=== PATIENT | female | born 1950 | race African-American/Black ===

== ENCOUNTER 2017-07-03 23:42 | Inpatient (IN) ==
[2017-07-04] MEDS ORDERED: SODIUM CHLORIDE 0.9% 500 ML IV STA (00:17)
[2017-07-04] MEDS ORDERED: ONDANSETRON 4 MG/2 ML VIAL IV STA (00:17)
[2017-07-04] MEDS ORDERED: KETOROLAC 30 MG/1 ML VIAL IV STA (00:17)
[2017-07-04] MEDS ORDERED: KETOROLAC 30 MG/1 ML VIAL ONE (00:37)
[2017-07-04] MEDS ORDERED: ONDANSETRON 4 MG/2 ML VIAL ONE (00:37)
--- NOTE | 2017-07-04 01:08 | Emergency Department Note ---
Mitchell Perez Brittany, am scribing for, and in the presence of, Maximus Brown MD 00:23. Kevin Perez Charles R, MD, personally performed the services described in this documentation, ascribed by Gabby Medrano in my presence, and it is both accurate and complete . Arrival - Arrival Chief Complaint: Back Stated Complaint: panic attack ED Nursing Triage Note: C/O Left lower back pain. Onset "days ago" Pt is a very poor historian. Pt denies fever. Denies any other symptoms. Mode of Arrival: Wheelchair Limitations: No Limitations Source: Patient, RN Notes Reviewed - History of Present Illness HPI Narrative: Patient is a 67 y/o black female presenting to the ED with c/o left lower back pain that has been ongoing for some months, worsening tonight. Patient states that this pain begins in the left lower back, radiating into the abdomen and down the bilateral lower extremities. She notes that at times with this pain she has experienced some numbness of the lower extremities with this back pain. She notes having some fever, chills, body aches, slight headache, constipation, and urinary frequency. Patient was recently seen and evaluated at [facility] a few weeks ago for Anxiety attacks and sinus congestion per family member at the bedside. Patient is routinely followed at [facility]. Patient states that on last visit to [facility] she was told by staff there that she would need to be admitted to the hospital. Patient does not elaborate on what particular diagnosis she may have had for someone there to tell her that, prompts belief that patient may in fact be slightly confused and may have an underlying UTI. Patient does not smoke cigarettes. PMHx of Seizures. No other complaints. Onset (ago): month(s) Consistency: intermittent Date of Last Menstrual Period: Hysterectomy Allergies/Adverse Reactions: Allergies Allergy/AdvReac Type Severity Reaction Status Date / Time Penicillins Allergy Severe RASH Verified 02/29/16 23:01 Home Medications: Home Medications Medication Instructions Recorded Confirmed Type Aspirin [Ecotrin] 81 mg PO DAILY 02/29/16 07/03/17 History Cholecalciferol (Vitamin D3) 50,000 unit PO DIRECTED 02/29/16 07/03/17 History [Vitamin D3] Phenytoin ER Cap [Dilantin Cap] 100 mg PO BID 02/29/16 07/03/17 History Ranitidine Tab [Zantac Tab] 150 mg PO BID 02/29/16 07/03/17 History tiZANidine [Zanaflex] 4 mg PO Q8HR 02/29/16 07/03/17 History Fluticasone 50 Mcg Nasal [place] 2 spray BOTH NARES DAILY 07/03/17 07/03/17 History [Flonase Nasal [place]] LORazepam [Lorazepam] 0.5 mg PO Q8H PRN 07/03/17 07/03/17 History Loratadine 10 mg PO DAILY 07/03/17 07/03/17 History PARoxetine [Paxil] 20 mg PO DAILY 07/03/17 07/03/17 History Review of System - Review of System 12 point system: reviewed and no additional remarkable complaints except as stated - Review of System Constitutional: Present: chills, fever Respiratory: Absent: respiratory distress Cardiovascular: Absent: chest pain Gastrointestinal: Present: constipation. Absent: abdominal pain, nausea, vomiting Genitourinary female: Present: frequency. Absent: dysuria, urgency Musculoskeletal: Present: lower back pain. Absent: arm pain, leg pain, neck pain Neurological: Present: headache Medical,Surgical,& Family Hx - Medical History Cardio: History of: Hypertension Psychological: History of: Anxiety Disorders, Depression - Social History Smoking Status: Never smoker Frequency of Alcohol Use: None Type of Drug Use: None Exam Vital Signs: Vital Signs Temperature 98.5 F 07/03/17 23:52 Pulse Rate 100 H 07/03/17 23:52 Respiratory Rate 16 07/03/17 23:52 Blood Pressure 149/76 07/03/17 23:52 O2 Sat by Pulse Oximetry 98 07/03/17 23:52 - General General appearance: alert, in no apparent distress, other (Fraile appearing black female) - Head Head exam: Present: atraumatic, normocephalic - Eye Eye exam: Present: PERRL, EOMI - ENT ENT exam: Present: normal exam, normal oropharynx - Neck Neck exam: Present: normal inspection, full ROM, trachea midline - Chest Chest inspection: Present: normal inspection, symmetric chest wall rise - Respiratory Respiratory exam: Present: normal lung sounds bilaterally - Cardiovascular Cardiovascular exam: Present: normal rhythm, tachycardia, normal heart sounds. Absent: regular rate - Abdominal Exam Abdominal exam: Present: soft, tenderness (suprapubic ttp), normal bowel sounds - Extremities Exam Extremities exam: Present: normal inspection - Back Exam Back exam: Present: CVA tenderness (L) - Neurological Exam Neurological exam: Present: alert, CN II-XII intact. Absent: oriented X3 ( seems to be confused), motor sensory deficit - Psychiatric Psychiatric exam: Present: normal affect, normal mood - Skin Skin exam: Present: warm, dry, intact, normal color Course - Consultations Consultation #1: Dr. Turner will admit patient for abdominal pain nausea and cholecystitis Time: 03:58 Results - Labs CBC & BMP: 07/04/17 01:16 07/04/17 01:16 Lab Results: I have reviewed the patients labs Labs: Laboratory Tests 07/04/17 07/04/17 07/04/17 01:16 01:16 01:16 WBC 11.2 RBC 4.23 Hgb 12.9 Hct 36.6 MCV 86.5 L Plt Count 225 MPV 9.4 L Neut % (Auto) 68.7 Lymph % (Auto) 19.6 L Neut # (Auto) 7.7 H [place] # (Auto) 1.2 H Sodium 135 L Potassium 3.6 Chloride 99 Carbon Dioxide 28 BUN 7 Creatinine 0.50 L Glucose 123 H Calculated Osmolality 268.1 L Urine Color Yellow Urine Appearance Clear Urine pH 7.0 Ur Specific [place] 1.010 Urine Protein Negative Urine Glucose (UA) 50 Urine Ketones Negative Urine Blood Small Urine Nitrate Negative Urine Bilirubin Negative Urine Urobilinogen < 2.0 H Urine Leukocytes Negative Urine RBC 2 Urine WBC 1 Ur Squamous Epith Cells Occasional Urine Mucus Occasional Laboratory Tests 07/04/17 01:16 Phenytoin 15.5 Disposition Clinical Impression: Cholecystitis, Cholelithiasis, Nausea & vomiting, Abdominal pain, Seizure disorder Case discussed with: patient, patient's family Disposition: Still a Patient Condition: Stable Time of Disposition: 03:59
[2017-07-04 01:38] LABS: Basophils # 0.1 10*3/uL (0.0-0.2); Basophils % 0.4 % (0.0-0.8); Eosinophils % 0.4 % (0.00-10.9); Hematocrit 36.6 VOL% (35.7-47.0); Hemoglobin 12.9 GM/DL (12.0-16.0); Immature Granulocytes % 0.6 %; Immature Granulocytes Absolute 0.07 #; Lymphocytes # 2.2 10*3/uL (1.4-4.0); Lymphocytes % 19.6 % (21.3-54.2); Mean Corpuscular HGB Conc 35.2 GM/DL (32-36); Mean Corpuscular Hemoglobin 31 PG (27-34); Mean Corpuscular Volume 86.5 FL (87-102); Mean Platelet Volume 9.4 FL (9.6-12.0); Monocytes # 1.2 10*3/uL (0.11-0.8); Monocytes % 10.3 % (1.7-12.7); Neutrophils # 7.7 10*3/uL (1.4-7.4); Neutrophils % 68.7 % (38.7-73.9); Platelet Count 225 T/CUMM (130-400); Red Blood Count 4.23 MC/CUMM (3.8-5.5); Red Cell Distribution Width 13.3 % (9.3-17.3); White Blood Count 11.2 T/CUMM (4-12)
[2017-07-04 01:51] LABS: Alanine Aminotransferase 45 U/L (13-56); Alkaline Phosphatase 90 U/L (45-117); Amylase 56 U/L (25-115); Aspartate Amino Transferase 28 U/L (0-37); Bilirubin,Total < 0.39 MG/DL (0.2-1.0); Blood Urea Nitrogen 7 MG/DL (7-18); Glucose 123 MG/DL (74-106); Magnesium 2.2 MG/DL (1.8-2.4); Osmolality,Calculated 268.1 MOS/KG (273-304); Potassium 3.6 MMOL/L (3.5-5.1); Sodium 135 MMOL/L (136-145)
[2017-07-04 02:03] LABS: Apearance,Urine CLEAR (Clear); Bilirubin,Urine Negative (Negative); Blood, Urine Small mg/dL (Negative); Glucose,Urine (UA) 50 mg/dL (Negative); Ketones,Urine Negative (Negative); Mucus,Urine Occasional /LPF (Occasional); Nitrite,Urine Negative (Negative); Protein,Urine Negative; RBC,Urine 2 /HPF (0-4); Squamous Epithelial Cell,Urine Occasional /HPF (0-10); Urine Color Yellow (Yellow); Urine Urobilinogen < 2.0 EU/DL (0.2-1.0); WBC,Urine 1 /HPF (0-6)
[2017-07-04] MEDS ORDERED: LORazepam 0.5 MG TABLET PO PRN (05:52)
[2017-07-04] MEDS ORDERED: ACETAMINOPHEN 325 MG TABLET PO PRN (05:52)
[2017-07-04] MEDS ORDERED: NON-FORMULARY MEDICATION (Cholecalciferol (Vitamin D3) [Vitamin D3] 50,000 UNIT) PO SCH (05:52)
[2017-07-04] MEDS ORDERED: HYDROmorphone 2 MG/1 ML VIAL IV PRN (05:52)
[2017-07-04] MEDS ORDERED: ALBUTEROL/IPRATROPIUM 3 ML NEB RESP TX PRN (05:52)
[2017-07-04] MEDS ORDERED: tiZANidine 4 MG TABLET PO SCH (06:00)
[2017-07-04] MEDS: SODIUM CHLORIDE 0.9% 1,000 ML IV SCH ×3 (06:13→18:28)
[2017-07-04] MEDS: LEVOFLOXACIN INJ 750 MG in PREMIX 1 EACH IV SCH (06:40)
[2017-07-04] MEDS ORDERED: metroNIDAZOLE INJ 500 MG in PREMIX 1 EACH IV SCH (07:00)
--- NOTE | 2017-07-04 07:39 | Ultrasound Report ---
Gallbladder ultrasound. Indication: Right upper quadrant pain. Abnormal findings on CT. There is a preliminary report from [facility]. The liver is normal in size and parenchymal echogenicity without focal lesion or intrahepatic biliary ductal dilatation. The common bile duct measures 4 mm. The gallbladder is distended. It contains a single 1.8 cm stone. The gallbladder wall measures 5 mm. The gallbladder wall appears edematous. There is no pericholecystic fluid. The right kidney presents a normal appearance. No ascites. No pancreatic abnormality is identified. Impression: Distended gallbladder containing a large gallstone. Edematous gallbladder wall thickening. These findings are suspicious for cholecystitis. The Ultrasound images were captured and stored. PROCEDURE INTERPRETED AT [facility] DEPARTMENT OF RADIOLOGY Final Report Signed by: Dr. Kavitha Tee
--- NOTE | 2017-07-04 08:52 | CT Report ---
CT of the abdomen and pelvis without intravenous or oral contrast. Indication: Pelvic and lower abdominal pain. Axial images were obtained with sagittal and coronal 2-D reconstructions. There is a preliminary report from [facility]. The heart is normal in size. There is no pericardial or pleural effusion. There is scarring in the lung bases, with a bullous area at the medial aspects of the right lower lung field. Slightly dilated vessels are noted adjacent to the anterior left margin of the liver. The liver is normal in size and density. The gallbladder is distended and gallbladder wall thickening is present. No calcified stones can be identified. No biliary ductal dilatation is seen. No pancreatic abnormality is identified. The spleen is normal in size. There is a 3 cm cyst at the midpole of the left kidney. No nephrolithiasis or hydronephrosis. Scattered calcification within a normal caliber abdominal aorta. There is no inguinal or iliac chain lymphadenopathy. There are numerous phleboliths within the pelvis. The pelvic organs appear to have been removed. The urinary bladder presents a normal appearance. The appendix presents a normal appearance. There is moderate fecal material throughout the length of the colon. No bowel wall thickening. The osseous structures are diffusely demineralized. Degenerative changes of the spinal column and hips. Impression: 1. No evidence of urinary tract calculi. Left renal cyst. 2. Findings suspicious for cholecystitis. Ultrasound recommended. 3. Constipation. The CT exam was performed using one or more of the following dose reduction techniques: Automated exposure control, adjustment of the mA and/or kV according to patient size, or use of iterative reconstruction technique. PROCEDURE INTERPRETED AT [facility] DEPARTMENT OF RADIOLOGY Final Report Signed by: Dr. Kavitha Tee
--- NOTE | 2017-07-04 09:03 | XRay Report ---
2 view abdomen. Indication: Abdominal pain. The heart size is normal. The lung bases are clear. There is considerable fecal material within the colon, but less than seen previously. No free air. No organomegaly. Osseous structures are diffusely demineralized. Impression: Constipation. PROCEDURE INTERPRETED AT [facility] DEPARTMENT OF RADIOLOGY Final Report Signed by: Dr. Kavitha Tee
[2017-07-04] MEDS: ASPIRIN EC 81 MG TABLET PO SCH ×2 (09:35→11:22)
[2017-07-04] MEDS: PHENYTOIN ER 100 MG CAPSULE PO SCH ×2 (09:36→20:56)
[2017-07-04] MEDS: LORATADINE 10 MG TABLET PO SCH (09:36)
[2017-07-04] MEDS: PARoxetine 20 MG TABLET PO SCH ×2 (09:37→11:22)
[2017-07-04] MEDS: FAMOTIDINE 20 MG TABLET PO SCH ×2 (09:38→20:56)
[2017-07-04] MEDS: PANTOPRAZOLE 40 MG VIAL IV SCH ×2 (09:38→09:43)
[2017-07-04] MEDS: ONDANSETRON 4 MG/2 ML VIAL IV PRN ×2 (09:44→20:56)
--- NOTE | 2017-07-04 10:49 | Hospitalist Consult Note ---
<Sid Dawson - Last Filed: 07/04/17 11:11> Assessment and Plan (1) Cholecystitis Status: Acute Assessment and plan: Defer to primary. Surgery planned for 07/05 Current Visit: Yes (2) Hypertension Status: Acute Assessment and plan: Patient's blood pressure stable at this time. Home meds have been restarted. Current Visit: Yes (3) Nausea & vomiting Status: Acute Assessment and plan: Patient has antiemetic ordered. Stable at present Current Visit: Yes (4) Seizure disorder Status: Acute Assessment and plan: Patient on as needed Ativan for seizures. Dilantin has been restarted. Patient cannot recall last time she has seizure. Current Visit: Yes History of Present Illness - Consult Narrative History of present illness: Ms. Madrid is a 67 year old black female with a history of hypertension, seizure disorder, and anxiety presented to the ED yesterday for complaints of lower back and abdominal pain that has been going well for several months and worsened last night. Patient reports that she has been seen recently at the [facility] for the same complaint. She also reports that she has a fever, chills, body aches, headaches, any urinary frequency as association with the lower back and abdominal pain. Patient was evaluated in the ED. abdominal CT revealed suspicions of cholecystitis. The patient was admitted by Dr. Turner. Hospitalist service was summoned to evaluate patient for medical management. Patient was seen and examined in room 267 with son Bryan present. Patient is alert and oriented without any complaints. Labs and chart reviewed. Vital signs are stable at this time. Home may have been restarted. We will sign off case. Please call with any questions. CC: Kalpesh Turner MD - Home Medications and Allergies Home Medications: Home Medications Medication Instructions Recorded Confirmed Type Aspirin [Ecotrin] 81 mg PO DAILY 02/29/16 07/04/17 History Cholecalciferol (Vitamin D3) 50,000 unit PO DIRECTED 02/29/16 07/04/17 History [Vitamin D3] Phenytoin ER Cap [Dilantin Cap] 100 mg PO BID 02/29/16 07/04/17 History Ranitidine Tab [Zantac Tab] 150 mg PO BID 02/29/16 07/04/17 History tiZANidine [Zanaflex] 4 mg PO Q8HR 02/29/16 07/04/17 History Fluticasone 50 Mcg Nasal [place] 2 spray BOTH NARES DAILY 07/03/17 07/04/17 History [Flonase Nasal [place]] LORazepam [Lorazepam] 0.5 mg PO Q8H PRN 07/03/17 07/04/17 History Loratadine 10 mg PO DAILY 07/03/17 07/04/17 History PARoxetine [Paxil] 20 mg PO DAILY 07/03/17 07/04/17 History Allergies/Adverse Reactions: Allergies Allergy/AdvReac Type Severity Reaction Status Date / Time Penicillins Allergy Severe RASH Verified 02/29/16 23:01 Medical,Surgical,& Family Hx - Medical History Cardio: History of: Hypertension Psychological: History of: Anxiety Disorders, Depression - Family History Family History: Reports;: Family Heart Disease - Social History Smoking Status: Never smoker Frequency of Alcohol Use: None Type of Drug Use: None Marital Status: Single Lives With:: Children Functional capacity: uses cane/walker 12 point system: reviewed and no additional remarkable complaints except as stated - Constitutional Constitutional: Present: chills, fever(s) - EENT Eyes: Absent: loss of vision Ears: Absent: decreased hearing Nose, mouth and throat: Absent: headache(s) - Cardiovascular Cardiovascular: Absent: chest pain at rest, edema - Respiratory Respiratory: Present: cough - Gastrointestinal Gastrointestinal: Present: abdominal pain. Absent: vomiting - Genitourinary Genitourinary: Absent: difficulty urinating - Musculoskeletal Musculoskeletal: Present: back pain - Neurological Neurological: Absent: confusion - Psychiatric Psychiatric: Present: anxiety, depression - Endocrine Endocrine: Present: cold intolerance Exam - Constitutional Vitals: Period Temp Pulse Resp BP Sys/Berman Pulse Ox Last 24 Hr 98.5 F-98.6 F 73-100 16-20 123-149/60-86 98-100 General appearance: no acute distress, under weight - Head Head exam: Present: normal inspection, normocephalic - Eye Eye exam: Present: EOMI Pupils: Present: CASTRO - Respiratory Respiratory exam: Present: clear to auscultation bilaterally. Absent: wheezes - Cardiovascular Cardiovascular exam: Present: regular rate and rhythm - GI/Abdominal GI/Abdominal exam: Present: normal bowel sounds, tenderness, soft - Extremities Exam Extremities exam: Present: normal inspection, full ROM. Absent: edema - Neurological Exam Neurological exam: Present: alert, oriented X3 - Psychiatric Psychiatric exam: Present: normal affect, normal mood - Skin Skin exam: Present: normal color, warm, dry Results - Labs CBC & BMP: 07/04/17 01:16 07/04/17 01:16 Lab Results: I have reviewed the past 24 hour labs <Debora Madera - Last Filed: 07/04/17 13:14> Assessment and Plan (1) Cholecystitis Status: Acute Assessment and plan: Continue Flagyl and Levaquin, plan for surgery today or tomorrow. Current Visit: Yes (2) Hyperglycemia Status: Acute Assessment and plan: Hemoglobin A1c to see if she has diabetes. Will order insulin sliding scale. Current Visit: Yes (3) Nausea & vomiting Status: Acute Current Visit: Yes (4) Seizure disorder Status: Acute Assessment and plan: Dilantin level good, will continue Dilantin as prescribed Current Visit: Yes (5) Hypertension Status: Acute Assessment and plan: Controlled Current Visit: Yes History of Present Illness - Data of Consult Consult date: 07/04/17 Requesting Physician: Maximus Brown - Consult Narrative Reason for consult: medical management History of present illness: Ms. Madrid is a 67 year old female seen and examined. Discussed with Dr. Turner , Dr. Brown consulted us without request from Dr. Turner. Patients problems are chronic and stable will sign off. Patient currently in normal saline at 100 mL' s per hour and is on Levaquin and Flagyl for antibiotics. CC: Kalpesh Turner MD Medical,Surgical,& Family Hx - Medical History Neurology: History of: Seizures (Chronic and stable) Endocrine: History of: Thyroid Disorder, Endocrine Problems No history of: Diabetes Mellitus (IDDM), Diabetes Mellitus (NIDDM) - Surgical History Additional Surgical History: None - Family History Family History: Reports;: Family Cancer - Gastrointestinal Gastrointestinal: Present: constipation, nausea, vomiting. Absent: diarrhea - Neurological Neurological: Absent: headache(s), syncope - Hematologic/Lymphatic Hematologic/Lymphatic: Absent: easy bleeding, easy bruising Exam - Constitutional Vitals: Period Temp Pulse Resp BP Sys/Berman Pulse Ox Last 24 Hr 97.4 F-98.6 F 73-100 16-20 116-149/55-86 96-100 Results - Labs CBC & BMP: 07/04/17 01:16 07/04/17 01:16 Labs: [place] level stable at 15.5, UA negative for infection but does have evidence of glucose. - Diagnostic Findings Procedure: CT Abdomen and Pelvis: report reviewed by me (Suspicious for cholecystitis but ultrasound recommended, evidence of constipation), Ultrasound : report reviewed by me (Distended gallbladder wall thickening with a large gallstone and edema in the gallbladder wall)
--- NOTE | 2017-07-04 11:01 | General Surg History&Physical ---
Assessment and Plan (1) Cholecystitis Status: Acute Assessment and plan: This patient has acute calculus cholecystitis. I have recommended IV antibiotics and interval laparoscopic versus open cholecystectomy. I have discussed the risks, benefits, and alternatives of the operation with the patient and her son in the room today and their questions were answered. The expected outcomes have been reviewed. In particular, I discussed the risk of bleeding, infection, hernias of the abdominal wall, injury to the intestines or liver, pancreatitis, dropped or retained stones in the abdomen, bile leak, and bile duct injury. The patient's questions have been answered. I have offered the patient the option of medical management as well but this is not my recommendation and I would advise her to go ahead and have this operation while she is here. She is going to think about this and let me know what she has talked things over with her son. We could potentially do the operation tomorrow if she is agreeable. Current Visit: Yes History of Present Illness Chief complaint: Abdominal pain History of present illness: Ms. Madrid is a 67 year old female with a history of well-controlled seizure disorder who presents to the hospital through the ER for abdominal pain. She was complaining of pain in the left abdomen and right abdomen and was worked up in the ER with abdominal x-ray followed by CT scan of the abdomen and pelvis and ultimately right upper quadrant ultrasound. Her lab work was fairly unremarkable but her imaging did show wall thickening in the gallbladder with a large stone looked impacted in the neck of the gallbladder. She was diagnosed with cholecystitis and admitted to me for management. She says she has had problems with this for several months. She can give an exact time frame. She says that her pain is worse after eating and it is in the upper abdomen on the left and right side and also the left lower quadrant. She denies any fevers but says her abdomen feels warm when she has episodes and she reports some sweats with these episodes as well. She reports nausea and vomiting and describes her vomitus pink. The patient has a history of hysterectomy and no other abdominal surgery. She lives with her son and is functionally independent with no exertional dyspnea or chest pain. She has not had a seizure and so many years that she cannot recall the last episode and she was treated at [facility]. Home Medications Medication Instructions Recorded Confirmed Type Aspirin [Ecotrin] 81 mg PO DAILY 02/29/16 07/04/17 History Cholecalciferol (Vitamin D3) 50,000 unit PO DIRECTED 02/29/16 07/04/17 History [Vitamin D3] Phenytoin ER Cap [Dilantin Cap] 100 mg PO BID 02/29/16 07/04/17 History Ranitidine Tab [Zantac Tab] 150 mg PO BID 02/29/16 07/04/17 History tiZANidine [Zanaflex] 4 mg PO Q8HR 02/29/16 07/04/17 History Fluticasone 50 Mcg Nasal [place] 2 spray BOTH NARES DAILY 07/03/17 07/04/17 History [Flonase Nasal [place]] LORazepam [Lorazepam] 0.5 mg PO Q8H PRN 07/03/17 07/04/17 History Loratadine 10 mg PO DAILY 07/03/17 07/04/17 History PARoxetine [Paxil] 20 mg PO DAILY 07/03/17 07/04/17 History Allergies Allergy/AdvReac Type Severity Reaction Status Date / Time Penicillins Allergy Severe RASH Verified 02/29/16 23:01 Medical,Surgical,& Family Hx - Medical History Cardio: History of: Hypertension Psychological: History of: Anxiety Disorders, Depression - Social History Smoking Status: Never smoker Frequency of Alcohol Use: None Type of Drug Use: None Exam - Constitutional Vitals: Period Temp Pulse Resp BP Sys/Berman Pulse Ox Last 24 Hr 98.5 F-98.6 F 73-100 16-20 123-149/60-86 98-100 General appearance: no acute distress, under weight - Head Head exam: Present: normal inspection, normocephalic - Eye Eye exam: Present: EOMI Pupils: Present: CASTRO - ENT ENT exam: Present: normal exam Mouth exam: Present: normal external inspection, normal voice - Neck Neck exam: Present: normal inspection, trachea midline - Respiratory Respiratory exam: Present: clear to auscultation bilaterally. Absent: accessory muscle use, chest wall tenderness - Cardiovascular Cardiovascular exam: Present: RRR. Absent: systolic murmur, tachycardia - GI/Abdominal GI/Abdominal exam: Present: normal bowel sounds, Carney's sign, tenderness (The patient is also tender minimally in the left lower quadrant.), soft, other (The patient has a well-healed midline vertical incision below her umbilicus from prior hysterectomy with no hernias.). Absent: hernia, rebound - Extremities Exam Extremities exam: Present: normal inspection, normal capillary refill - Back Exam Back exam: Present: normal inspection - Neurological Exam Neurological exam: Present: alert, oriented X3 Speech: Present: normal - Skin Skin exam: Present: normal color, warm - Constitutional Constitutional: Present: as per HPI - EENT Nose, mouth and throat: Present: as per HPI - Cardiovascular Cardiovascular: Present: as per HPI - Respiratory Respiratory: Present: as per HPI - Gastrointestinal Gastrointestinal: Present: as per HPI - Genitourinary Genitourinary: Present: as per HPI - Musculoskeletal Musculoskeletal: Present: as per HPI - Neurological Neurological: Present: as per HPI - Endocrine Endocrine: Present: as per HPI Hematologic/Lymphatic: Present: as per HPI Results - Labs CBC & BMP: 07/04/17 01:16 07/04/17 01:16 - Diagnostic Findings Procedure: CT Abdomen and Pelvis: image reviewed by me, report reviewed by me ( Gallstones with gallbladder wall thickening; constipation), Ultrasound: image reviewed by me, report reviewed by me (Gallstones with gallbladder wall thickening)
[2017-07-04] MEDS: metroNIDAZOLE INJ 500 MG in PREMIX 1 EACH IV SCH ×2 (11:21→18:27)
[2017-07-04] MEDS: FLUTICASONE 50 MCG NASAL SPRAY 16 GM BOTTLE BOTH NARES SCH (11:22)
[2017-07-04] MEDS ORDERED: GLUCAGON 1 MG VIAL IM PRN (13:11)
[2017-07-04] MEDS ORDERED: DEXTROSE 50% 25 GM/50 ML SYRINGE IV PRN (13:11)
[2017-07-04] MEDS: INSULIN LISPRO 100 UNIT/ML SUBCUT SCH ×2 (17:36→21:45)
[2017-07-05] MEDS: SODIUM CHLORIDE 0.9% 1,000 ML IV SCH ×2 (03:30→11:12)
[2017-07-05] MEDS: metroNIDAZOLE INJ 500 MG in PREMIX 1 EACH IV SCH ×2 (03:30→09:50)
[2017-07-05 06:44] LABS: Basophils # 0.1 10*3/uL (0.0-0.2); Basophils % 0.5 % (0.0-0.8); Eosinophils # 0.1 10*3/uL (0.0-0.87); Eosinophils % 0.7 % (0.00-10.9); Hematocrit 35.6 VOL% (35.7-47.0); Hemoglobin 12.1 GM/DL (12.0-16.0); Immature Granulocytes % 0.5 %; Immature Granulocytes Absolute 0.05 #; Lymphocytes # 2.5 10*3/uL (1.4-4.0); Lymphocytes % 26.2 % (21.3-54.2); Mean Corpuscular Hemoglobin 30 PG (27-34); Mean Corpuscular Volume 88.1 FL (87-102); Mean Platelet Volume 9.8 FL (9.6-12.0); Monocytes # 0.9 10*3/uL (0.11-0.8); Monocytes % 9.6 % (1.7-12.7); Neutrophils # 5.9 10*3/uL (1.4-7.4); Neutrophils % 62.5 % (38.7-73.9); Platelet Count 222 T/CUMM (130-400); Red Blood Count 4.04 MC/CUMM (3.8-5.5); Red Cell Distribution Width 13.8 % (9.3-17.3); White Blood Count 9.4 T/CUMM (4-12)
[2017-07-05] MEDS: LEVOFLOXACIN INJ 750 MG in PREMIX 1 EACH IV SCH (06:51)
[2017-07-05 07:08] LABS: Albumin 3.3 G/DL (3.4-5.0); Bilirubin,Total 0.6 MG/DL (0.2-1.0); Calcium 8.5 MG/DL (8.5-10.1); Magnesium 2.2 MG/DL (1.8-2.4); Osmolality,Calculated 277.3 MOS/KG (273-304); Potassium 3.9 MMOL/L (3.5-5.1); Total Protein 5.9 G/DL (6.4-8.3)
--- NOTE | 2017-07-05 07:27 | Event Note ---
The patient has decided to go ahead with surgery. This will be scheduled for today.
[2017-07-05] MEDS: INSULIN LISPRO 100 UNIT/ML SUBCUT SCH ×4 (08:33→21:00)
[2017-07-05] MEDS: LORATADINE 10 MG TABLET PO SCH (08:33)
[2017-07-05] MEDS: ASPIRIN EC 81 MG TABLET PO SCH (08:33)
[2017-07-05] MEDS: PARoxetine 20 MG TABLET PO SCH (08:34)
[2017-07-05] MEDS: FLUTICASONE 50 MCG NASAL SPRAY 16 GM BOTTLE BOTH NARES SCH (08:34)
[2017-07-05] MEDS: FAMOTIDINE 20 MG TABLET PO SCH ×2 (08:34→20:42)
[2017-07-05] MEDS: PANTOPRAZOLE 40 MG VIAL IV SCH (08:35)
[2017-07-05] MEDS: PHENYTOIN ER 100 MG CAPSULE PO SCH ×2 (08:35→20:43)
--- NOTE | 2017-07-05 09:39 | EKG Report ---
Stationary ECG Study [facility] Test Date: 07/05/2017 9:40:58 AM Pat Name: SUSHIL YA Department: Room: 339 Gender: F Manager Statistics: NHUNG : 1950 Requested by: Natanael Younger Order Number: [id number] Reading MD: STACEY ELI Intervals [place] Rate: 77 P: 78 OK: 118 QRS: 78 QRSD: 78 T: 56 QT: 379 QTc: 411 Interpretive Statements SINUS RHYTHM WITH SHORT OK INTERVAL Electronically Signed On 07-05-17 19:23:06 CDT by STACEY ELI [email or web address]
--- NOTE | 2017-07-05 11:59 | Hospitalist Progress Note ---
Assessment and Plan (1) Cholecystitis Status: Acute Assessment and plan: 1)HTN- on home meds, BP well controlled. 2)seizure disorder- on dilantin, ativan prn. Current Visit: Yes (2) Cholelithiasis Status: Acute Current Visit: Yes (3) Nausea & vomiting Status: Acute Current Visit: Yes (4) Abdominal pain Status: Acute Current Visit: Yes (5) Seizure disorder Status: Acute Current Visit: Yes (6) Hypertension Status: Acute Current Visit: Yes Hospitalist: Subjective Interval history: Mrs Madrid is feeling ok today. She is nervous about surgery and anxious to get it over with. She denies shortness of breath. Exam - Constitutional Vitals: Period Temp Pulse Resp BP Sys/Berman Pulse Ox Last 24 Hr 97.4 F-98.8 F 67-85 18-20 116-137/53-62 96-100 General appearance: no acute distress, under weight - Eye Eye exam: Present: EOMI. Absent: scleral icterus - Respiratory Respiratory exam: Present: clear to auscultation bilaterally - Cardiovascular Cardiovascular exam: Present: regular rate and rhythm - GI/Abdominal GI/Abdominal exam: Present: normal bowel sounds, tenderness - Extremities Exam Extremities exam: Absent: edema - Neurological Exam Neurological exam: Present: alert, oriented X3 Results - Labs CBC & BMP: 07/05/17 05:42 07/05/17 05:42 Lab Results: I have reviewed the past 24 hour labs
[2017-07-05] MEDS ORDERED: TISSUE ADHESIVE 1 EACH APPLICATOR TOP ONE (12:37)
[2017-07-05] MEDS ORDERED: LIDOCAINE 1%/EPI INJ 20 ML VIAL ONE (12:37)
--- NOTE | 2017-07-05 14:00 | Operative Note ---
Date of procedure: 07/05/17 Pre-op diagnosis: Cholecystitis Post-op diagnosis: same Procedure: Preoperative diagnosis Cholecystitis Postoperative diagnosis Same Procedures performed Laparoscopic cholecystectomy Findings Acute and chronic cholecystitis was seen. The critical view of safety was obtained prior to placing clips on the cystic duct and cystic artery. Complications None apparent Specimen Gallbladder Anesthesia GETA Blood loss 5 mL Indications Cholecystitis. The risks, benefits, and alternatives of the operation were discussed with the patient in detail, and the expected outcomes were reviewed. In particular, the risk of bowel injury, liver injury, bile duct leak and bile duct injury, as well as pancreatitis and retained or drop stones were discussed in detail. All the patient's questions were answered. She like to proceed with the operation. Description of procedure The patient was taken to the operating room and transferred to the operating table in the supine position. Pressure points were padded and SCDs were placed to bilateral lower extremities. General endotracheal anesthesia was administered. The abdomen was prepped chlorhexidine and draped sterilely. Preoperative antibiotics were administered, a timeout was performed. The abdomen was entered in a supraumbilical location of the Veress needle. The skin incision was made in the mid-epigastric location at [place] with a 11 blade scalpel after local anesthetic was administered. The skin was grasped with a penetrating towel clip. A Veress needle was used to enter the peritoneal cavity confirmed by double click technique. Aspiration was negative. Saline drop test confirmed intraperitoneal location. The abdomen was insufflated to 15 mmHg with an initial insufflation pressure of 2 mmHg. The Veress needle was removed and an 11 mm trocar was placed blindly. The towel clip was removed. Diagnostic laparoscopy was performed. There is no evidence of Veress needle or trocar injury. The patient was placed in reverse Trendelenburg and left side rolled down position. Under direct visualization, and after local anesthetic was administered, a 5 mm infraumbilical trocar and 2 right subcostal 5 mm trochars were placed. The camera was moved to the infraumbilical trocar. The gallbladder was grasped at the fundus and infundibulum. The cystic plate peritoneum was dissected into the critical view of safety was obtained. The cystic duct and cystic artery were clipped twice initially and once laterally and divided laparoscopically with scissors between clips. Gallbladder was removed from the gallbladder fossa using hook electrocautery. The gallbladder was placed in a Endo Catch retrieval bag through the 11 mm trocar and removed through the trocar with no significant fascial extension of the incision. The gallbladder fossa was suction irrigated until the effluent was clear. The CO2 was released from the abdomen and the trochars were removed. There was a fascial defect at the midepigastric location was closed in 2 layers with 0 Vicryl [id number] sutures. The skin incisions were closed with 4-0 Monocryl subcuticular suture and sterile skin glue. The patient was awakened from anesthesia and transferred to recovery. Postoperative plan Advance diet as tolerated Pain control Anesthesia: FREDI, local Surgeon / Physician: Kalpesh Turner Estimated blood loss: minimal Specimens: other (gallbladder) Condition: stable Disposition: PACU Results - Labs CBC & BMP: 07/05/17 05:42 07/05/17 05:42 Discharge Plan - Discharge Medications No Action tiZANidine [Zanaflex] 4 mg PO Q8HR Ranitidine Tab [Zantac Tab] 150 mg PO BID Phenytoin ER Cap [Dilantin Cap] 100 mg PO BID Cholecalciferol (Vitamin D3) [Vitamin D3] 50,000 unit PO DIRECTED Aspirin [Ecotrin] 81 mg PO DAILY PARoxetine [Paxil] 20 mg PO DAILY Loratadine 10 mg PO DAILY Fluticasone 50 Mcg Nasal [place] [Flonase Nasal [place]] 2 spray BOTH NARES DAILY LORazepam [Lorazepam] 0.5 mg PO Q8H PRN PRN Reason: Anxiety - Follow Up or Referral - Forms/Instructions
--- NOTE | 2017-07-05 14:12 | Anesthesia Post-Op ---
Anesthesia Post OP - Post Ansesthetic Evaluation Patient seen in post op: Yes Resp: within normal limits CV: within normal limits Mental: within normal limits Temp: within normal limits [id number]: within normal limits Nausea and Vomiting: within normal limits Pain: within normal limits
[2017-07-05] MEDS ORDERED: PROPOFOL 200 MG/20 ML VIAL IV ONE (14:15)
[2017-07-05] MEDS ORDERED: fentaNYL 100 MCG/2 ML VIAL ONE (14:16)
[2017-07-05] MEDS ORDERED: GLYCOPYRROLATE 0.4 MG/2 ML VIAL ONE (14:16)
[2017-07-05] MEDS ORDERED: NEOSTIGMINE 10 MG/10 ML VIAL ONE (14:16)
[2017-07-05] MEDS ORDERED: ROCURONIUM 100 MG/10 ML VIAL IV ONE (14:16)
[2017-07-05] MEDS ORDERED: ONDANSETRON 4 MG/2 ML VIAL ONE (14:16)
[2017-07-05] MEDS ORDERED: MIDAZOLAM 2 MG/2 ML VIAL ONE (14:16)
[2017-07-05] MEDS ORDERED: SEVOFLURANE 1 UNIT/15 MINUTE INH ONE (14:18)
[2017-07-06] MEDS: SODIUM CHLORIDE 0.9% 1,000 ML IV SCH (03:22)
[2017-07-06 07:02] VITALS: BP 128/54
--- NOTE | 2017-07-06 07:23 | Discharge Summary ---
Hospital Course - Hospital Course Hospital Course: The patient was admitted for acute cholecystitis. She was taken to the operating room for lap scopic cholecystectomy and did well postoperatively and was discharged home the following day. Diagnosis - Discharge Diagnosis (1) Cholecystitis Status: Acute Discharge Plan - Discharge Data Disposition: Disch To Home/Self Care Condition at Discharge: Stable Discharge Diet: advance to your usual diet Activity: no lifting Hygiene: may shower Weight Bearing at Discharge: weight bear as tolerated Driving: other (Do not drive or operate heavy machinery for at least 24 hours and after you are off of narcotic pain medications.) Contact your physician if you experience:: fever over 101, Difficulty voiding, Redness or swelling, Nausea/Vomiting, Shortness of breath, Bleeding, pain uncontrolled by pain medications Wound / Dressing Care Instructions: It is okay to shower. Do not scrub the incision aggressively or submerge it under water. - Discharge Medications New HYDROcodone/ACETAMIN 7.5-325 [[place] 7.5-325] 1 tablet PO Q4H PRN #20 tablet PRN Reason: Pain Moderate (4-7) Continue tiZANidine [Zanaflex] 4 mg PO Q8HR Ranitidine Tab [Zantac Tab] 150 mg PO BID Phenytoin ER Cap [Dilantin Cap] 100 mg PO BID Cholecalciferol (Vitamin D3) [Vitamin D3] 50,000 unit PO DIRECTED Aspirin [Ecotrin] 81 mg PO DAILY PARoxetine [Paxil] 20 mg PO DAILY Loratadine 10 mg PO DAILY Fluticasone 50 Mcg Nasal [place] [Flonase Nasal [place]] 2 spray BOTH NARES DAILY LORazepam [Lorazepam] 0.5 mg PO Q8H PRN PRN Reason: Anxiety - Follow Up or Referral Follow Up: Kalpesh Turner MD [Physician] - 07/21/17 - Forms/Instructions Exam - Constitutional Vitals: Period Temp Pulse Resp BP Sys/Berman Pulse Ox Last 24 Hr 97.5 F-99.4 F 62-101 14-20 125-154/49-75 99-100 General appearance: no acute distress, under weight - Head Head exam: Present: normal inspection, normocephalic - Eye Eye exam: Present: EOMI Pupils: Present: CASTRO - ENT ENT exam: Present: normal exam - Neck Neck exam: Present: normal inspection - Respiratory Respiratory exam: Present: clear to auscultation bilaterally. Absent: accessory muscle use, chest wall tenderness - Cardiovascular Cardiovascular exam: Present: regular rate and rhythm. Absent: systolic murmur , tachycardia - GI/Abdominal GI/Abdominal exam: Present: tenderness (Expected postoperative tenderness with clean incisions), soft. Absent: rebound - Extremities Exam Extremities exam: Present: normal inspection, normal capillary refill - Back Exam Back exam: Present: normal inspection - Neurological Exam Neurological exam: Present: alert, oriented X3 - Psychiatric Psychiatric exam: Present: normal affect, normal mood - Skin Skin exam: Present: normal color, warm Discharge Results Procedures and tests throughout hospitalization: Pending Orders 07/06/17 04:00 Urinalysis 07/06/17 06:45 Urinalysis Routine Labs on day of discharge: Labs from last 24 hours 07/06/17 07/05/17 07/05/17 06:45 20:22 16:13 POC Glucose 77 100 95 07/05/17 10:59 POC Glucose 88 DS: Provider Date of admission: 07/04/17 03:59 Primary care physician: . No PCP Attending physician on admission: Kalpesh Turner MD Consults: 07/04/17 05:52 Consult to Case Mgmt/Social Srvs [CONS] Routine Reason for Case Mgmt/Social Srvs: Rehab Other Consult Comment: Home situation Consult to Physician [CONS] Routine Comment: Medical rn case management Provider: [facility] When should Consulting Provider be notified: In am 07/04/17 13:12 Consult to [facility], Educator [CONS] Routine Reason for Product Strategy Director: Diabetes Education Discharging clinician: Kalpesh Turner MD Expected date of discharge: 07/06/17
[2017-07-06] MEDS: INSULIN LISPRO 100 UNIT/ML SUBCUT SCH (08:03)
[2017-07-06] MEDS: PHENYTOIN ER 100 MG CAPSULE PO SCH (08:34)
[2017-07-06] MEDS: PANTOPRAZOLE 40 MG VIAL IV SCH (08:34)
[2017-07-06] MEDS: PARoxetine 20 MG TABLET PO SCH (08:34)
[2017-07-06] MEDS: FAMOTIDINE 20 MG TABLET PO SCH (08:34)
[2017-07-06] MEDS: ASPIRIN EC 81 MG TABLET PO SCH (08:34)
[2017-07-06] MEDS: FLUTICASONE 50 MCG NASAL SPRAY 16 GM BOTTLE BOTH NARES SCH (08:35)
--- NOTE | 2017-07-06 11:27 | Pathology Report from [facility] ---
[facility] ACCESSION # : [id number] PATIENT NAME : Hoda Ya ORDERING DR : Kalpesh Turner MD CLINICAL HX: Cholecystitis POST-OP DX: Same SPECIMEN INFO: Gallbladder GROSS DESCRIPTION: The specimen is received in formalin labeled with the patients name and consists of an intact gallbladder measuring 11.0 x 3.8 cm. The serosa is fatty, yellow-liz. The wall averages 0.2 cm in thickness. The mucosa is granular, gold-liz. The lumen contains viscous, hyperemic yellow- gold bile. Within the bile is a 2.0 x 1.6 x 1.4 cm dark yellow stone. 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 DIAGNOSIS FOR HODA YA: GALLBLADDER: Chronic cholecystitis. Cholelithiasis. No evidence of malignancy. COLLECTED DATE: 07/05/2017 [facility] REPORT DATE: 07/06/2017 ELECTRONICALLY SIGNED BY: Effie Dumont III, M.D. 07/06/2017 - 8:28:22 [email or web address]
== END 2017-07-06 10:44 | disposition home or self-care (01) | DRG 418 ==
LOC: N.ED 23:42 → N.EDINP 07-04 03:59 → N.TELES 07-04 06:08 → N.3E 07-04 16:21
PROVIDERS: ADMIT Surgery; ATTEND Surgery
PROC: LAPCHOL (2017-07-05 13:05)